=== PATIENT | male | born 1945 | race Two or more races ===

== ENCOUNTER 2018-10-30 06:35 | Day surgery (SDC) | payer OTHER, MEDICARE ==
[~2018-10-30] VITALS: Ht 175.3 cm; Wt 74.8 kg
[2018-10-30 07:20] VITALS: BP 144/72
[2018-10-30 12:43] VITALS: BP 131/65
== END 2018-10-30 11:10 | disposition home or self-care (01) ==
LOC: DS 06:35 → OR 07:30 → GI 07:30 → DS 11:10
PROVIDERS: Internal Medicine
PROC: 0DJD8ZZ Inspection of Lower Intestinal Tract, Via Natural or Artificial Opening Endoscopic (ICD-10-PCS; principal; 2018-10-30 07:30)
DX: K60.2 Anal fissure, unspecified (principal); K57.90 Diverticulosis of intestine, part unspecified, without perforation or abscess without bleeding; D69.3 Immune thrombocytopenic purpura; N40.0 Benign prostatic hyperplasia without lower urinary tract symptoms; B19.20 Unspecified viral hepatitis C without hepatic coma; Z87.891 Personal history of nicotine dependence; Z68.27 Body mass index [BMI] 27.0-27.9, adult
CPT/HCPCS: 45378; J1200; J1610; J2250; J2310; J3010; J3490

== ENCOUNTER 2019-01-22 06:19 | Day surgery (SDC) | payer OTHER, MEDICARE ==
[~2019-01-22] VITALS: Ht 175.3 cm; Wt 74.8 kg
[2019-01-22 06:42] VITALS: BP 142/77
[2019-01-22 10:01] VITALS: BP 110/59
== END 2019-01-22 09:40 | disposition home or self-care (01) ==
LOC: DS 06:19 → OR 07:30 → GI 07:30 → DS 09:40
DX: K21.9 Gastro-esophageal reflux disease without esophagitis (principal); K29.50 Unspecified chronic gastritis without bleeding; K22.8 Other specified diseases of esophagus; Z87.891 Personal history of nicotine dependence; Z79.899 Other long term (current) drug therapy; Z79.82 Long term (current) use of aspirin; Z98.890 Other specified postprocedural states; Z86.19 Personal history of other infectious and parasitic diseases
CPT/HCPCS: 43235; 99152; J1200; J1610; J2250; J2310; J3010; J3490